=== PATIENT | female | born 1990 | race Caucasian/White ===

== ENCOUNTER 2025-02-28 11:41 | Outpatient (AMB) | payer MEDICAID, SELFPAY ==
[2025-02-28 11:59] VITALS: BP 117/71; PULSE 69; RESP 14; TEMP 36.6; O2SAT 99; BMI 24.7
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
== END 2025-02-28 12:22 | disposition home or self-care (01) ==
LOC: HODSOBC 11:41
PROVIDERS: Supervising Provider Obstetrics & Gynecology; Visit Provider Advanced Practice Midwife
DX: Z34.81 Encounter for supervision of other normal pregnancy, first trimester (principal); Z3A.09 9 weeks gestation of pregnancy
CPT/HCPCS: 99204; G0463

== ENCOUNTER 2025-03-21 09:07 | Outpatient (AMB) | payer MEDICAID, SELFPAY ==
[2025-03-21 09:36] VITALS: BP 108/69; PULSE 63; RESP 18; TEMP 36.2; O2SAT 98; BMI 24.7
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
== END 2025-03-21 09:55 | disposition home or self-care (01) ==
LOC: HODSOBC 09:07
PROVIDERS: Supervising Provider Obstetrics & Gynecology; Visit Provider Advanced Practice Midwife
DX: O09.291 Supervision of pregnancy with other poor reproductive or obstetric history, first trimester (principal); Z3A.12 12 weeks gestation of pregnancy; Z87.59 Personal history of other complications of pregnancy, childbirth and the puerperium
CPT/HCPCS: 99213; G0463

== ENCOUNTER 2025-04-30 11:05 | Outpatient (AMB) | payer MEDICAID, SELFPAY ==
[2025-04-30 11:20] VITALS: BP 96/62; PULSE 90; RESP 17; TEMP 36.9; O2SAT 98; BMI 25.2
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
== END 2025-04-30 11:43 | disposition home or self-care (01) ==
LOC: HODSOBC 11:05
PROVIDERS: Supervising Provider Advanced Practice Midwife; Visit Provider Advanced Practice Midwife
DX: O09.892 Supervision of other high risk pregnancies, second trimester (principal); O21.9 Vomiting of pregnancy, unspecified; Z3A.18 18 weeks gestation of pregnancy
CPT/HCPCS: 99214; G0463

== ENCOUNTER 2025-05-28 13:39 | Outpatient (AMB) | payer MEDICAID, SELFPAY ==
[2025-05-28 13:45] VITALS: BP 106/64; PULSE 92; RESP 17; TEMP 36.7; O2SAT 90; BMI 25.8
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
== END 2025-05-28 14:20 | disposition home or self-care (01) ==
LOC: HODSOBC 13:39
PROVIDERS: Supervising Provider Advanced Practice Midwife; Visit Provider Advanced Practice Midwife
DX: Z34.82 Encounter for supervision of other normal pregnancy, second trimester (principal); Z3A.21 21 weeks gestation of pregnancy
CPT/HCPCS: 99213; G0463

== ENCOUNTER 2025-08-03 14:55 | Outpatient (AMB) | payer MEDICAID, SELFPAY ==
[2025-08-03 14:59] VITALS: BP 107/71; PULSE 90; RESP 18; TEMP 36.8; O2SAT 98; BMI 27.3
--- NOTE | 2025-08-03 14:59 | AMB.OBVISIT ---
Vital Signs 08/03/25 14:59 Height 1.57 m Height Method Stated Weight 67.245 kg Weight Measurement Method Standing Scale BMI 27.3 BP 107/71 Blood Pressure Source Automatic Cuff Blood Pressure Location Left Upper Arm Position Sitting Respiration 18 Pulse 90 Pulse Source Monitor Temp 98.2 F Temp Source Oral Pulse Oximetry (%) 98 Oxygen Delivery Method Room Air Allergies/Home Meds Allergies & Medications Allergies No Known Allergies Allergy (Verified 08/03/25 15:01) Medication Reconciliation ondansetron 4 mg disintegrating tablet 4 mg PO Q6H PRN nausea and vomiting #30 tabs 04/30/25 [Rx Confirmed 08/03/25] vitamin-ferrous fumarate 28 mg iron-folic acid 800 mcg tablet ( Vitamins with Minerals) 1 tab PO QDAY #60 tabs 04/30/25 [Rx Confirmed 08/03/25] Intake Visit Data Collection New Patient or Established: Established Patient (seen at [facility] within 3 years) Reason for Visit:: CARE Seen by Clinical Staff ONLY (RN/MA): No 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 Do You Feel Safe at Home: Yes Authorities Contacted: N/A PCP or OBGYN visit in last 3 months: Yes Hx Now: Yes Are you currently on any form of Control: No Pain Present Currently: No Pain Scale Used: Hawk-Jernigan/Numerical Pain scale:: 0 Smoking Status Smoking Status: Never smoker Immunizations Flu Vaccine in the Last 12 Months: No Flu Vaccine Exclusion Criteria: Refused by Patient Questionnaires Covid-19 Vaccine Questionnaire Has patient been vacinated for Covid-19 Have you been vacinated for Covid-19: No PHQ-9 PHQ-2 Over the last 2 weeks, how often have you been bothered by any of the following problems? 1. Little interest or pleasure in doing things: several days 2. Feeling down, depressed, or hopeless: nearly every day Total score: 4 PHQ-9 3. Trouble falling or staying asleep, or sleeping too much: Several days 4. Feeling tired or having little energy: Nearly every day 5. Poor appetite or overeating: Not at all 6. Feeling bad about yourself - or that you are a failure or have let yourself or your family down: Not at all 7. Trouble concentrating on things, such as reading the newspaper or watching television: Not at all 8. Moving or speaking so slowly that other people could have noticed? - Or the opposite - being so fidgety or restless that you have been moving around a lot more than usual: several days 9. Thoughts that you would be better off or of hurting yourself in some way: Not at all Total score: 9.0 If you checked off any problems, how difficult have these problems made it for you to do your work, take care of things at home, or get along with other people?: somewhat difficult Source: Developed by Drs. Jt Ward, Darlene Brower, Kareem Robles and colleagues, with an educational ruddy from [employer]. Depression screen completed yes Social History Living Situation History Lives With: Family Housing: House Tobacco History Smoking Status: Never smoker Second Hand Smoke Exposure: No Alcohol History Alcohol Intake: Current Domestic Abuse History Do You Feel Safe at Home: Yes Care OB Visit Log OB Flowsheet Initial Weight: Not Recorded Date <del>?</del> EGA Weight BP Alb Glu CTX Pres Fundal ht FHR Mov Dilation Station Effacement Hx Notes Visit Note 02/28/25 <del>?</del> 8w 2d 61.348 kg 117/71 8 absent 34 yo , SAB x 1 prior to 10 week. unsure date. lmp 12/24/24. q month. not using contraception. Denies SAB complaints. Tired. here with partner, both are happy sono for viability. ob panel and HCG. comfort measure for preg discomfort. continue PNV. NIPT nv, rtc 3 week 03/21/25 <del>?</del> 11w 2d 60.895 kg 108/69 absent unknown 12 160 absent Compliant with vitamins. Denies any complaints of bleeding leaking or cramping. Slight nausea. Schedule NIPT and carrier screen today. Schedule anatomy scan with maternal- medicine at 20 weeks. Continue vitamins. Discussed comfort measures for nausea and vomiting. Discussed SAB precautions. Return in 4 weeks OB check 04/30/25 <del>?</del> 17w 0d 62.142 kg 96/62 absent unknown 18 156 active Complains of increased nausea and vomiting. Denies vaginal leaking. Denies bleeding. Denies contractions. Maternal- medicine appointment is scheduled for May 28. Patient was given a lab slip to do OB panel, NIPT, AFP and carrier screens. Complains of increased nausea and vomiting. Reports slight movement. Denies leaking bleeding or cramps. No maternal- medicine scheduled for May. Patient was given a lab slip to do OB panel, AFP, NIPT and carrier screen. Encouraged to keep appointment for her anatomy scan. Comfort measures for nausea and vomiting. And I gave her prescription for Zofran 3 times daily. Return in 4 weeks OB check 05/28/25 <del>?</del> 21w 0d 63.673 kg 106/64 absent unknown 20 145 active Nausea and vomiting improved. Reports movement. Denies leaking, bleeding, contractions. Patient states that maternal- medicine (8 changed to EDC to October 08, 2025. And Discussed labs. Discussed dates. Discussed labor precautions. Increase fluids. Return in 4 weeks OB 08/03/25 <del>?</del> 30w 4d 67.245 kg 107/71 absent unknown 30 145 active No complaints of nausea and vomiting. Declined Tdap for today. Discussed labor precautions. We ordered third trimester labs. Growth sono next visit. Discussed labor precautions. Increase fluids return in 2 weeks to SHELLEY Calculator Estimated Delivery Date Method Current WG Current Estimate 10/08/25 Ultrasound #1 30w 4d Other Estimates 09/30/25 LMP (Uncertain) 31w 5d 10/08/25 Ultrasound #2 30w 4d 10/08/25 Manual 30w 4d final shelley: 10/08/25 Notes Visit Date: 05/28/25 Last Updated by: Aicha Tenorio CNM per [facility] sono 05/18/25 iUP 19w4. . change EDC to 10/08/25 OB panel O+,abs-, rpr;;nr, rub imm, HBSAG-, HIV-, GC/CT-, , NIPT-/girl, CF/SMA- Visit Date: 02/28/25 Last Updated by: Aicha Tenorio CNM 34 yo . lmp 12/24/24. EDC 10/03/25 Office Procedures OBC Clinic LOC & Office Proc's Nursing/Assessment Patient Status: Established Patient OB Clinic Nursing Assessment: Medication Reconciliation, Update PMH in EMR and Vital Signs OB Clinic Coordination of Care: Complex Care and Chronic Disease 1-5, Education Complex Pt/Fam, Consent,records obtained, informed consent, Education Simp Pt/Fam, 1 Ins Authorization, Lab and Imaging orders, Results/Orders obtained and Staff clarify orders Special Needs: Heart tones Established Patient Charge Established Patient Point Assignment: 170 Established Patient Point Charge: EP Level 5 (160-above) Assessment & Plan Diagnosis / Problem List (1) Encounter for supervision of high risk in third trimester, antepartum: Status: Acute Plan Review ultrasound. Third trimester labs ordered. Will do a growth scan next visit. Discussed labor precautions. Increase fluids. Continue prenatals. Return in 3 weeks OB check Additional Plan Follow Up: 3 Weeks (obc)
== END 2025-08-03 15:31 | disposition home or self-care (01) ==
LOC: HODSOBC 14:55
PROVIDERS: Supervising Provider Advanced Practice Midwife; Visit Provider Advanced Practice Midwife
DX: O09.93 Supervision of high risk pregnancy, unspecified, third trimester (principal); Z3A.30 30 weeks gestation of pregnancy; Z28.21 Immunization not carried out because of patient refusal
CPT/HCPCS: 99215; G0463

== ENCOUNTER 2025-08-21 13:00 | Outpatient (AMB) | payer MEDICAID, SELFPAY ==
[2025-08-21 13:10] VITALS: BP 110/69; PULSE 94; RESP 18; TEMP 36.2; O2SAT 98; BMI 27.2
--- NOTE | 2025-08-21 13:10 | AMB.OBPNC ---
Vital Signs 08/21/25 13:10 Height 1.57 m Height Method Stated Weight 67.132 kg Weight Measurement Method Standing Scale BMI 27.2 BP 110/69 Blood Pressure Source Automatic Cuff Blood Pressure Location Left Upper Arm Position Sitting Respiration 18 Pulse 94 Pulse Source Monitor Temp 97.2 F Temp Source Oral Pulse Oximetry (%) 98 Oxygen Delivery Method Room Air Allergies/Home Meds Allergies & Medications Allergies No Known Allergies Allergy (Verified 08/21/25 13:11) Medication Reconciliation ondansetron 4 mg disintegrating tablet 4 mg PO Q6H PRN nausea and vomiting #30 tabs 04/30/25 [Rx Confirmed 08/21/25] vitamin-ferrous fumarate 28 mg iron-folic acid 800 mcg tablet ( Vitamins with Minerals) 1 tab PO QDAY #60 tabs 04/30/25 [Rx Confirmed 08/21/25] Immunizations Immunizations Flu Vaccine in the Last 12 Months: No Flu Vaccine Exclusion Criteria: No Exclusion Criteria Care OB Visit Log OB Flowsheet Initial Weight: Not Recorded Date <del>?</del> EGA Weight BP Alb Glu CTX Pres Fundal ht FHR Mov Dilation Station Effacement Hx Notes Visit Note 02/28/25 <del>?</del> 8w 2d 61.348 kg 117/71 8 absent 34 yo , SAB x 1 prior to 10 week. unsure date. lmp 12/24/24. q month. not using contraception. Denies SAB complaints. Tired. here with partner, both are happy sono for viability. ob panel and HCG. comfort measure for preg discomfort. continue PNV. NIPT nv, rtc 3 week 03/21/25 <del>?</del> 11w 2d 60.895 kg 108/69 absent unknown 12 160 absent Compliant with vitamins. Denies any complaints of bleeding leaking or cramping. Slight nausea. Schedule NIPT and carrier screen today. Schedule anatomy scan with maternal- medicine at 20 weeks. Continue vitamins. Discussed comfort measures for nausea and vomiting. Discussed SAB precautions. Return in 4 weeks OB check 04/30/25 <del>?</del> 17w 0d 62.142 kg 96/62 absent unknown 18 156 active Complains of increased nausea and vomiting. Denies vaginal leaking. Denies bleeding. Denies contractions. Maternal- medicine appointment is scheduled for May 28. Patient was given a lab slip to do OB panel, NIPT, AFP and carrier screens. Complains of increased nausea and vomiting. Reports slight movement. Denies leaking bleeding or cramps. No maternal- medicine scheduled for May. Patient was given a lab slip to do OB panel, AFP, NIPT and carrier screen. Encouraged to keep appointment for her anatomy scan. Comfort measures for nausea and vomiting. And I gave her prescription for Zofran 3 times daily. Return in 4 weeks OB check 05/28/25 <del>?</del> 21w 0d 63.673 kg 106/64 absent unknown 20 145 active Nausea and vomiting improved. Reports movement. Denies leaking, bleeding, contractions. Patient states that maternal- medicine (8 changed to EDC to October 08, 2025. And Discussed labs. Discussed dates. Discussed labor precautions. Increase fluids. Return in 4 weeks OB 08/03/25 <del>?</del> 30w 4d 67.245 kg 107/71 absent unknown 30 145 active No complaints of nausea and vomiting. Declined Tdap for today. Discussed labor precautions. We ordered third trimester labs. Growth sono next visit. Discussed labor precautions. Increase fluids return in 2 weeks to 08/21/25 <del>?</del> 33w 1d 67.132 kg 110/69 absent cephalic 33 145 active Fetus is active. Denies leaking or bleeding. Increased backache and pressure. Patient stands for 9 hours a day at work. Complains of some sciatic pain. off work starting 08/25. last day to work 08/24/25. Discussed labor precautions. Discussed disability. Kick count twice a day. We discussed Tdap. Patient will make a decision next visit. And patient declined the flu vaccine. SHELLEY Calculator Estimated Delivery Date Method Current WG Current Estimate 10/08/25 Ultrasound #1 33w 1d Other Estimates 09/30/25 LMP (Uncertain) 34w 2d 10/08/25 Ultrasound #2 33w 1d 10/08/25 Manual 33w 1d final shelley: 10/08/25 Notes Visit Date: 08/21/25 Last Updated by: Aicha Tenorio CNM 3rd tri lab wnl Visit Date: 05/28/25 Last Updated by: Aicha Tenorio CNM per [facility] sono 05/18/25 iUP 19w4. . change EDC to 10/08/25 OB panel O+,abs-, rpr;;nr, rub imm, HBSAG-, HIV-, GC/CT-, , NIPT-/girl, CF/SMA- Visit Date: 02/28/25 Last Updated by: Aicha Tenorio CNM 34 yo . lmp 12/24/24. EDC 10/03/25 Office Procedures OBC Clinic LOC & Office Proc's Nursing/Assessment Patient Status: Established Patient OB Clinic Nursing Assessment: Medication Reconciliation, Update PMH in EMR and Vital Signs OB Clinic Coordination of Care: Consent,records obtained, informed consent, Education Simp Pt/Fam, Lab and Imaging orders, Results/Orders obtained and Staff clarify orders Special Needs: Heart tones Established Patient Charge Established Patient Point Assignment: 110 Established Patient Point Charge: EP Level 3 (80-115) Assessment & Plan Diagnosis / Problem List (1) Encounter for supervision of high risk in third trimester, antepartum: Status: Acute Plan Discussed labor precaution. Kick count twice a day. Patient's last date of work will be August 24, 2025. Disability will start August 28. Continue prenatals. Little bit increase fluids. Return in 2 weeks OB check. Patient declined Tdap for today. And she declined flu vaccine Additional Plan Follow Up: 2 Weeks (obc)
== END 2025-08-21 13:45 | disposition home or self-care (01) ==
PROVIDERS: Supervising Provider Advanced Practice Midwife; Visit Provider Advanced Practice Midwife
DX: O09.893 Supervision of other high risk pregnancies, third trimester (principal); O99.891 Other specified diseases and conditions complicating pregnancy; M54.30 Sciatica, unspecified side; Z3A.33 33 weeks gestation of pregnancy; Z28.21 Immunization not carried out because of patient refusal
CPT/HCPCS: 99213; G0463

== ENCOUNTER 2025-09-04 13:33 | Outpatient (AMB) | payer MEDICAID, SELFPAY ==
[2025-09-04 14:03] VITALS: BP 112/72; PULSE 91; RESP 18; TEMP 36.6; O2SAT 98; BMI 27.3
--- NOTE | 2025-09-04 14:03 | OBCLNT_ITS ---
Vital Signs 09/04/25 14:03 Height 1.57 m Height Method Stated Weight 67.302 kg Weight Measurement Method Standing Scale BMI 27.3 BP 112/72 Blood Pressure Source Automatic Cuff Blood Pressure Location Left Upper Arm Position Sitting Respiration 18 Pulse 91 Pulse Source Monitor Temp 98 F Temp Source Oral Pulse Oximetry (%) 98 Oxygen Delivery Method Room Air Allergies/Home Meds Allergies & Medications Allergies No Known Allergies Allergy (Verified 09/04/25 14:04) Medication Reconciliation ondansetron 4 mg disintegrating tablet 4 mg PO Q6H PRN nausea and vomiting #30 tabs 04/30/25 [Rx Confirmed 09/04/25] vitamin-ferrous fumarate 28 mg iron-folic acid 800 mcg tablet ( Vitamins with Minerals) 1 tab PO QDAY #60 tabs 04/30/25 [Rx Confirmed 09/04/25] Immunizations Immunizations Flu Vaccine in the Last 12 Months: No Flu Vaccine Exclusion Criteria: Refused by Patient Care OB Visit Log OB Flowsheet Initial Weight: Not Recorded Date -?-?-?-?-?-?-?-?-?-?-?-?- EGA Weight BP Alb Glu CTX Pres Fundal ht FHR Mov Dilation Station Effacement Hx Notes Visit Note 02/28/25 -?-?-?-?-?-?-?-?-?-?-?-?- 8w 2d 61.348 kg 117/71 8 absent 34 yo , SAB x 1 prior to 10 week. unsure date. lmp 12/24/24. q month. not using contraception. Denies SAB complaints. Tired. here with partner, both are happy sono for viability. ob panel and HCG. comfort measure for preg discomfort. continue PNV. NIPT nv, rtc 3 week 03/21/25 -?-?-?-?-?-?-?-?-?-?-?-?- 11w 2d 60.895 kg 108/69 absent unknown 12 160 absent Compliant with vitamins. Denies any complaints of bleeding leaking or cramping. Slight nausea. Schedule NIPT an d carrier screen today. Schedule anatomy scan with maternal- medicine at 20 weeks. Continue vitamins. Discussed comfort measures for nausea and vomiting. Discussed SAB precautions. Return in 4 weeks OB check 04/30/25 -?-?-?-?-?-?-?-?-?-?-?-?- 17w 0d 62.142 kg 96/62 absent unknown 18 156 active Complains of increased nausea and vomiting. Denies vaginal leaking. Denies bleeding. Denies contractions. Maternal- medicine appointment is scheduled for May 28. Patient was given a lab slip to do OB panel, NIPT, AFP and carrier screens. Complains of increased nausea and vomiti ng. Reports slight movement. Denies leaking bleeding or cramps. No maternal- medicine scheduled for May. Patient was giv en a lab slip to do OB panel, AFP, NIPT and carrier screen. Encouraged to keep appointment for her anatomy scan. Comfort measures for nausea and vomiting. And I gave her prescription for Zofran 3 times daily. Return in 4 weeks OB check 05/28/25 -?-?-?-?-?-?-?-?-?-?-?-?- 21w 0d 63.673 kg 106/64 absent unknown 20 145 active Nausea and vomiting improved. Reports movement. Denies leaking, bleeding, contractions. Patient states that maternal- medicine (8 changed to EDC to October 08, 2025. And Discussed labs. Discussed dates. Discussed labor precautions. Increase fluids. Return in 4 weeks OB 08/03/25 -?-?-?-?-?-?-?-?-?-?-?-?- 30w 4d 67.245 kg 107/71 absent unknown 30 145 active No complaints of nausea and vomiting. Declined Tdap for today. Discussed labor precautions. We ordered third trimester labs. Growth sono next visit. Discussed labor precautions. Increase fluids return in 2 weeks to 08/21/25 -?-?-?-?-?-?-?-?-?-?-?-?- 33w 1d 67.132 kg 110/69 absent cephalic 33 145 active Fetus is active. Denies leaking or bleeding. Increased backache and pressure. Patient stands for 9 hours a day at work. Complains of some sciatic pain. off work starting 08/25. last day to work 08/24/25. Discussed labor precautions. Discussed disability. Kick count twice a day. We discussed Tdap. Patient will make a decision next visit. And patient declined the flu vaccine. 09/04/25 -?-?-?-?-?-?-?-?-?-?-?-?- 35w 1d 67.302 kg 112/72 absent cephalic 33 145 active Patient reports good movement. Denies leaking, bleeding, contractions. Patient had a 3D ultrasound 2 weeks ago. Sono for growth. Discussed labor precautions. Kick count twice a day. GBS today return in 2 weeks OB check SHELLEY Calculator Estimated Delivery Date Method Current WG Current Estimate 10/08/25 Ultrasound #1 35w 1d Other Estimates 09/30/25 LMP (Uncertain) 36w 2d 10/08/25 Ultrasound #2 35w 1d 10/08/25 Manual 35w 1d final shelley: Notes Visit Date: 08/21/25 Last Updated by: Aicha Tenorio CNM 3rd tri lab wnl Visit Date: 05/28/25 Last Updated by: Aicha Tenorio CNM per [facility] sono 05/18/25 iUP 19w4. . change EDC to 10/08/25 OB panel O+,abs-, rpr;;nr, rub imm, HBSAG-, HIV-, GC/CT-, , NIPT- /girl, CF/SMA- Visit Date: 02/28/25 Last Updated by: Aicha Tenorio CNM 34 yo . lmp 12/24/24. EDC 10/03/25 Office Procedures OBC Clinic LOC & Office Proc's Nursing/Assessment Patient Status: Established Patient OB Clinic Nursing Assessment: Medication Reconciliation, Update PMH in EMR and Vital Signs OB Clinic Coordination of Care: Complex Care and Chronic Disease 1-5, Consent,records obtained, informed consent, Education Simp Pt/Fam, 1 Ins Authorization, Lab and Imaging orders, Results/Orders obtained and Staff clarify orders Special Needs: Heart tones Established Patient Charge Established Patient Point Assignment: 150 Established Patient Point Charge: EP Level 4 (120-155) Assessment & Plan Diagnosis / Problem List (1) Encounter for supervision of high risk in third trimester, antepartum: Status: Acute Plan Sono for growth. Discussed labor precautions. Kick count twice a day. GBS today. Increase fluids. Return in 2 weeks OB check Additional Plan Follow Up: 2 Weeks (obc)
== END 2025-09-04 14:39 | disposition home or self-care (01) ==
LOC: HODSOBC 13:33
PROVIDERS: Supervising Provider Advanced Practice Midwife; Visit Provider Advanced Practice Midwife
DX: O09.93 Supervision of high risk pregnancy, unspecified, third trimester (principal); Z3A.35 35 weeks gestation of pregnancy; Z36.85 Encounter for antenatal screening for Streptococcus B; Z28.21 Immunization not carried out because of patient refusal
CPT/HCPCS: 99214; G0463

== ENCOUNTER 2025-09-14 14:32 | Outpatient (AMB) | payer MEDICAID, SELFPAY ==
[2025-09-14 14:40] VITALS: BP 107/70; PULSE 79; RESP 18; TEMP 36.7; O2SAT 99; BMI 27.3
--- NOTE | 2025-09-14 14:40 | OBCLNT_ITS ---
Vital Signs 09/14/25 14:40 Height 1.57 m Height Method Stated Weight 67.358 kg Weight Measurement Method Standing Scale BMI 27.3 BP 107/70 Blood Pressure Source Automatic Cuff Blood Pressure Location Right Upper Arm Position Sitting Respiration 18 Pulse 79 Pulse Source Monitor Temp 98.1 F Temp Source Temporal Artery Scan Pulse Oximetry (%) 99 Oxygen Delivery Method Room Air Allergies/Home Meds Allergies & Medications Allergies No Known Allergies Allergy (Verified 09/14/25 14:41) Medication Reconciliation ondansetron 4 mg disintegrating tablet 4 mg PO Q6H PRN nausea and vomiting #30 tabs 04/30/25 [Rx Confirmed 09/14/25] vitamin-ferrous fumarate 28 mg iron-folic acid 800 mcg tablet ( Vitamins with Minerals) 1 tab PO QDAY #60 tabs 04/30/25 [Rx Confirmed 09/14/25] Immunizations Immunizations Flu Vaccine in the Last 12 Months: No Flu Vaccine Exclusion Criteria: Refused by Patient Care OB Visit Log OB Flowsheet Initial Weight: Not Recorded Date -?-?-?-?-?-?-?-?-?-?-?-?- EGA Weight BP Alb Glu CTX Pres Fundal ht FHR Mov Dilation Station Effacement Hx Notes Visit Note 02/28/25 -?-?-?-?-?-?-?-?-?-?-?--?- 8w 2d 61.348 kg 117/71 8 absent 34 yo , SAB x 1 prior to 10 week. unsure date. lmp 12/24/24. q month. not using contraception. Denies SAB co mplaints. Tired. here with partner, both are happy sono for viability. ob panel and HCG. comfort measure for preg discomfort. continue PNV. NIPT nv, rtc 3 week 03/21/25 -?-?-?-?-?-?-?-?-?--?-?-?- 11w 2d 60.895 kg 108/69 absent unknown 12 160 absent Compliant with vitamins. Denies any complaints of bleeding leaking or cramping. Slight nausea. Schedule NIPT an d carrier screen today. Schedule anatomy scan with maternal- medicine at 20 weeks. Continue vitamins. Discussed comfort measures for nausea and vomiting. Discussed SAB precautions. Return in 4 weeks OB check 04/30/25 -?-?-?-?-?-?-?-?-?-?-?-?- 17w 0d 62.142 kg 96/62 absent unknown 18 156 active Complains of increased nausea and vomiting. Denies vaginal leaking. Denies bleeding. Denies contractions. Maternal- medicine appointment is scheduled for May 28. Patient was given a lab slip to do OB panel, NIPT, AFP and carrier screens. Complains of increased nausea and vomiti ng. Reports slight movement. Denies leaking bleeding or cramps. No maternal- medicine scheduled for May. Patient was giv en a lab slip to do OB panel, AFP, NIPT and carrier screen. Encouraged to keep appointment for her anatomy scan. Comfort measures for nausea and vomiting. And I gave her prescription for Zofran 3 times daily. Return in 4 weeks OB check 05/28/25 -?-?-?-?-?-?-?-?-?-?-?-?- 21w 0d 63.673 kg 106/64 absent unknown 20 145 active Nausea and vomiting improved. Reports movement. Denies leaking, bleeding, contractions. Patient states that maternal- medicine (8 changed to EDC to October 08, 2025. And Discussed labs. Discussed dates. Discussed labor precautions. Increase fluids. Return in 4 weeks OB 08/03/25 -?-?-?-?-?-?-?-?-?-?-?-?- 30w 4d 67.245 kg 107/71 absent unknown 30 145 active No complaints of nausea and vomiting. Declined Tdap for today. Discussed labor precautions. We ordered third trimester labs. Growth sono next visit. Discussed labor precautions. Increase fluids return in 2 weeks to 08/21/25 -?-?-?-?-?-?-?-?-?-?-?-?- 33w 1d 67.132 kg 110/69 absent cephalic 33 145 active Fetus is active. Denies leaking or bleeding. Increased backache and pressure. Patient stands for 9 hours a day at work. Complains of some sciatic pain. off work starting 08/25. last day to work 08/24/25. Discussed labor precautions. Discussed disability. Kick count twice a day. We discussed Tdap. Patient will make a decision next visit. And patient declined the flu vaccine. 09/04/25 -?-?-?-?-?-?-?-?-?-?-?-?- 35w 1d 67.302 kg 112/72 absent cephalic 33 145 active Patient reports good movement. Denies leaking, bleeding, contractions. Patient had a 3D ultrasound 2 weeks ago. Sono for growth. Discussed labor precautions. Kick count twice a day. GBS today return in 2 weeks OB check 09/14/25 -?-?-?-?-?-?-?-?-?-?-?-?- 36w 4d 67.358 kg 107/70 absent cephalic 35 145 active Reports good movement. Denies leaking or bleeding. Occasional contraction and pressure. Call [facility] for [facility]. Discussed labor precautions. Kick count twice a day. Increase fluids. Return in a week OB check [facility]LLEY Calculator Estimated Delivery Date Method Current WG Current Estimate 10/08/25 Ultrasound #1 36w 4d Other Estimates 09/30/25 LMP (Uncertain) 37w 5d 10/08/25 Ultrasound #2 36w 4d 10/08/25 Manual 36w 4d final shelley: Notes Visit Date: 09/14/25 Last Updated by: Aicha Tenorio CNM 09/05/25: GBS- Visit Date: 08/21/25 Last Updated by: Aicha Tenorio CNM 3rd tri lab wnl Visit Date: 05/28/25 Last Updated by: Aicha Tenorio CNM per [facility] sono 05/18/25 iUP 19w4. . change EDC to 10/08/25 OB panel O+,abs-, rpr;;nr, rub imm, HBSAG-, HIV-, GC/CT-, , NIPT- /girl, CF/SMA- Visit Date: 02/28/25 Last Updated by: Aicha Tenorio CNM 34 yo . lmp 12/24/24. EDC 10/03/25 Office Procedures OBC Clinic LOC & Office Proc's Nursing/Assessment Patient Status: Established Patient OB Clinic Nursing Assessment: Medication Reconciliation, Update PMH in EMR and Vital Signs OB Clinic Coordination of Care: Complex Care and Chronic Disease 1-5, Education Complex Pt/Fam, Consent,records obtained, informed consent, Education Simp Pt/Fam, Lab and Imaging orders, Results/Orders obtained and Staff clarify orders Special Needs: Heart tones Established Patient Charge Established Patient Point Assignment: 155 Established Patient Point Charge: EP Level 4 (120-155) Assessment & Plan Diagnosis / Problem List (1) Encounter for supervision of high risk in third trimester, antepartum: Status: Acute Plan Call for ultrasound results from [facility]. Increase fluids. Reviewed kick count labor precautions. Patient instructed to do kick count twice a day. Discussed danger signs symptoms return week OB check Additional Plan Follow Up: 1 Week (obc)
== END 2025-09-14 15:04 | disposition home or self-care (01) ==
LOC: HODSOBC 14:32
PROVIDERS: Supervising Provider Advanced Practice Midwife; Visit Provider Advanced Practice Midwife
DX: O09.93 Supervision of high risk pregnancy, unspecified, third trimester (principal); Z3A.36 36 weeks gestation of pregnancy
CPT/HCPCS: 99214; G0463

== ENCOUNTER 2025-09-28 14:31 | Outpatient (AMB) | payer MEDICAID, SELFPAY ==
[2025-09-28 14:45] VITALS: BP 114/73; PULSE 78; RESP 16; TEMP 36.7; O2SAT 98; BMI 27.4
--- NOTE | 2025-09-28 14:45 | AMB.OBPNC ---
Vital Signs 09/28/25 14:45 Height 1.57 m Height Method Stated Weight 67.699 kg Weight Measurement Method Standing Scale BMI 27.4 BP 114/73 Blood Pressure Source Automatic Cuff Blood Pressure Location Left Upper Arm Position Sitting Respiration 16 Pulse 78 Pulse Source Monitor Temp 98.1 F Temp Source Oral Pulse Oximetry (%) 98 Oxygen Delivery Method Room Air Allergies/Home Meds Allergies & Medications Allergies No Known Allergies Allergy (Verified 09/28/25 14:46) Medication Reconciliation ondansetron 4 mg disintegrating tablet 4 mg PO Q6H PRN nausea and vomiting #30 tabs 04/30/25 [Rx Confirmed 09/28/25] vitamin-ferrous fumarate 28 mg iron-folic acid 800 mcg tablet ( Vitamins with Minerals) 1 tab PO QDAY #60 tabs 04/30/25 [Rx Confirmed 09/28/25] Immunizations Immunizations Flu Vaccine in the Last 12 Months: No Flu Vaccine Exclusion Criteria: Already Received Care OB Visit Log OB Flowsheet Initial Weight: Not Recorded Date <del>?</del> EGA Weight BP Alb Glu CTX Pres Fundal ht FHR Mov Dilation Station Effacement Hx Notes Visit Note 02/28/25 <del>?</del> 8w 2d 61.348 kg 117/71 8 absent 34 yo , SAB x 1 prior to 10 week. unsure date. lmp 12/24/24. q month. not using contraception. Denies SAB complaints. Tired. here with partner, both are happy sono for viability. ob panel and HCG. comfort measure for preg discomfort. continue PNV. NIPT nv, rtc 3 week 03/21/25 <del>?</del> 11w 2d 60.895 kg 108/69 absent unknown 12 160 absent Compliant with vitamins. Denies any complaints of bleeding leaking or cramping. Slight nausea. Schedule NIPT and carrier screen today. Schedule anatomy scan with maternal- medicine at 20 weeks. Continue vitamins. Discussed comfort measures for nausea and vomiting. Discussed SAB precautions. Return in 4 weeks OB check 04/30/25 <del>?</del> 17w 0d 62.142 kg 96/62 absent unknown 18 156 active Complains of increased nausea and vomiting. Denies vaginal leaking. Denies bleeding. Denies contractions. Maternal- medicine appointment is scheduled for May 28. Patient was given a lab slip to do OB panel, NIPT, AFP and carrier screens. Complains of increased nausea and vomiting. Reports slight movement. Denies leaking bleeding or cramps. No maternal- medicine scheduled for May. Patient was given a lab slip to do OB panel, AFP, NIPT and carrier screen. Encouraged to keep appointment for her anatomy scan. Comfort measures for nausea and vomiting. And I gave her prescription for Zofran 3 times daily. Return in 4 weeks OB check 05/28/25 <del>?</del> 21w 0d 63.673 kg 106/64 absent unknown 20 145 active Nausea and vomiting improved. Reports movement. Denies leaking, bleeding, contractions. Patient states that maternal- medicine (8 changed to EDC to October 08, 2025. And Discussed labs. Discussed dates. Discussed labor precautions. Increase fluids. Return in 4 weeks OB 08/03/25 <del>?</del> 30w 4d 67.245 kg 107/71 absent unknown 30 145 active No complaints of nausea and vomiting. Declined Tdap for today. Discussed labor precautions. We ordered third trimester labs. Growth sono next visit. Discussed labor precautions. Increase fluids return in 2 weeks to 08/21/25 <del>?</del> 33w 1d 67.132 kg 110/69 absent cephalic 33 145 active Fetus is active. Denies leaking or bleeding. Increased backache and pressure. Patient stands for 9 hours a day at work. Complains of some sciatic pain. off work starting 08/25. last day to work 08/24/25. Discussed labor precautions. Discussed disability. Kick count twice a day. We discussed Tdap. Patient will make a decision next visit. And patient declined the flu vaccine. 09/04/25 <del>?</del> 35w 1d 67.302 kg 112/72 absent cephalic 33 145 active Patient reports good movement. Denies leaking, bleeding, contractions. Patient had a 3D ultrasound 2 weeks ago. Sono for growth. Discussed labor precautions. Kick count twice a day. GBS today return in 2 weeks OB check 09/14/25 <del>?</del> 36w 4d 67.358 kg 107/70 absent cephalic 35 145 active Reports good movement. Denies leaking or bleeding. Occasional contraction and pressure. Call [facility] for ultrasound. Discussed labor precautions. Kick count twice a day. Increase fluids. Return in a week OB check 09/28/25 <del>?</del> 38w 4d 67.699 kg 114/73 absent cephalic 37 145 active Reports good movement. Denies leaking, bleeding, contractions. Patient is tearful today as she is having some issues with the father the baby. He is saying that the baby is not he is not wanting paternity testing and does not want to be there to support her during labor Discussed labor precautions. Kick count twice a day. Discussed danger signs symptoms return week OB check SHELLEY Calculator Estimated Delivery Date Method Current WG Current Estimate 10/08/25 Ultrasound #1 38w 4d Other Estimates 09/30/25 LMP (Uncertain) 39w 5d 10/08/25 Ultrasound #2 38w 4d 10/08/25 Manual 38w 4d final shelley: 10/08/25 Notes Visit Date: 09/28/25 Last Updated by: Aicha Tenorio CNM 09/06: EFW: 41%,vtx, normal UTE,no previa Visit Date: 09/14/25 Last Updated by: Aicha Tenorio CNM 09/05/25: GBS- Visit Date: 08/21/25 Last Updated by: Aicha Tenorio CNM 3rd tri lab wnl Visit Date: 05/28/25 Last Updated by: Aicha Tenorio CNM per [facility] sono 05/18/25 iUP 19w4. . change EDC to 10/08/25 OB panel O+,abs-, rpr;;nr, rub imm, HBSAG-, HIV-, GC/CT-, , NIPT-/girl, CF/SMA- Visit Date: 02/28/25 Last Updated by: Aicha Tenorio, PK 34 yo . lmp 12/24/24. EDC 10/03/25 Office Procedures [facility] Clinic LOC & Office Proc's Nursing/Assessment Patient Status: Established Patient OB Clinic Nursing Assessment: Medication Reconciliation, Update PMH in EMR and Vital Signs OB Clinic Coordination of Care: Complex Care and Chronic Disease 1-5, Consent,records obtained, informed consent, Education Simp Pt/Fam, 1 Ins Authorization, Lab and Imaging orders, Results/Orders obtained and Staff clarify orders Special Needs: Heart tones Established Patient Charge Established Patient Point Assignment: 150 Established Patient Point Charge: EP Level 4 (120-155) Assessment & Plan Diagnosis / Problem List (1) Encounter for supervision of high risk in third trimester, antepartum: Status: Acute Plan Discussed labor precautions. Kick count twice a day. Discussed comfort measures during labor and pain med options. Reviewed danger signs symptoms and ER precautions return week Additional Plan Follow Up: 1 Week (obc)
== END 2025-09-28 15:46 | disposition home or self-care (01) ==
LOC: HODSOBC 14:31
PROVIDERS: Supervising Provider Advanced Practice Midwife; Visit Provider Advanced Practice Midwife
DX: O09.93 Supervision of high risk pregnancy, unspecified, third trimester (principal); Z3A.38 38 weeks gestation of pregnancy
CPT/HCPCS: 99214; G0463

== ENCOUNTER 2025-10-03 15:04 | Outpatient (AMB) | payer MEDICAID, SELFPAY ==
[2025-10-03 15:10] VITALS: BP 130/78; PULSE 87; RESP 18; TEMP 36.8; O2SAT 98; BMI 27.4
--- NOTE | 2025-10-03 15:10 | OBCLNT_ITS ---
Vital Signs 10/03/25 15:10 Height 1.57 m Height Method Stated Weight 67.699 kg Weight Measurement Method Standing Scale BMI 27.4 BP 130/78 Blood Pressure Source Automatic Cuff Blood Pressure Location Left Upper Arm Position Sitting Respiration 18 Pulse 87 Pulse Source Monitor Temp 98.2 F Temp Source Oral Pulse Oximetry (%) 98 Oxygen Delivery Method Room Air Allergies/Home Meds Allergies & Medications Allergies No Known Allergies Allergy (Verified 10/03/25 15:11) Medication Reconciliation ondansetron 4 mg disintegrating tablet 4 mg PO Q6H PRN nausea and vomiting #30 tabs 04/30/25 [Rx Confirmed 10/03/25] vitamin-ferrous fumarate 28 mg iron-folic acid 800 mcg tablet ( Vitamins with Minerals) 1 tab PO QDAY #60 tabs 04/30/25 [Rx Confirmed 10/03/25] Immunizations Immunizations Flu Vaccine in the Last 12 Months: No Flu Vaccine Exclusion Criteria: Refused by Patient Care OB Visit Log OB Flowsheet Initial Weight: Not Recorded Date -?-?-?-?-?-?-?-?-?-?-?-?- EGA Weight BP Alb Glu CTX Pres Fundal ht FHR Mov Dilation Station Effacement Hx Notes Visit Note 02/28/25 -?-?-?-?-?-?-?-?-?-?-?-?- 8w 2d 61.348 kg 117/71 8 absent 34 yo , SAB x 1 prior to 10 week. unsure date. lmp 12/24/24. q month. not using contraception. Denies SAB complaints. Tired. here with partner, both are happy sono for viability. ob panel and HCG. comfort measure for preg discomfort. continue PNV. NIPT nv, rtc 3 week 03/21/25 -?-?-?-?-?-?-?-?-?-?-?-?- 11w 2d 60.895 kg 108/69 absent unknown 12 160 absent Compliant with vitamins. Denies any complaints of bleeding leaking or cramping. Slight nausea. Schedule NIPT an d carrier screen today. Schedule anatomy scan with maternal- medicine at 20 weeks. Continue vitamins. Discussed comfort measures for nausea and vomiting. Discussed SAB precautions. Return in 4 weeks OB check 04/30/25 -?-?-?-?-?-?-?-?-?-?-?-?- 17w 0d 62.142 kg 96/62 absent unknown 18 156 active Complains of increased nausea and vomiting. Denies vaginal leaking. Denies bleeding. Denies contractions. Maternal- medicine appointment is scheduled for May 28. Patient was given a lab slip to do OB panel, NIPT, AFP and carrier screens. Complains of increased nausea and vomiti ng. Reports slight movement. Denies leaking bleeding or cramps. No maternal- medicine scheduled for Darlene jason. Patient was giv en a lab slip to do OB panel, AFP, NIPT and carrier screen. Encouraged to keep appointment for her anatomy scan. Comfort measures for nausea and vomiting. And I gave her prescription for Zofran 3 times daily. Return in 4 weeks OB check 05/28/25 -?-?-?-?-?-?-?-?-?-?-?-?- 21w 0d 63.673 kg 106/64 absent unknown 20 145 active Nausea and vomiting improved. Reports movement. Denies leaking, bleeding, contractions. Patient states that maternal- medicine (8 changed to EDC to October 08, 2025. And Discussed labs. Discussed dates. Discussed labor precautions. Increase fluids. Return in 4 weeks OB 08/03/25 -?-?-?-?-?-?-?-?-?-?-?-?- 30w 4d 67.245 kg 107/71 absent unknown 30 145 active No complaints of nausea and vomiting. Declined Tdap for today. Discussed labor precautions. We ordered third trimester labs. Growth sono next visit. Discussed labor precautions. Increase fluids return in 2 weeks to 08/21/25 -?-?-?-?-?-?-?-?-?-?-?-?- 33w 1d 67.132 kg 110/69 absent cephalic 33 145 active Fetus is active. Denies leaking or bleeding. Increased backache and pressure. Patient stands for 9 hours a day at work. Complains of some sciatic pain. off work starting 08/25. last day to work 08/24/25. Discussed labor precautions. Discussed disability. Kick count twice a day. We discussed Tdap. Patient will make a decision next visit. And patient declined the flu vaccine. 09/04/25 -?-?-?-?-?-?-?-?-?-?-?-?- 35w 1d 67.302 kg 112/72 absent cephalic 33 145 active Patient reports good movement. Denies leaking, bleeding, contractions. Patient had a 3D ultrasound 2 weeks ago. Sono for growth. Discussed labor precautions. Kick count twice a day. GBS today return in 2 weeks OB check 09/14/25 -?-?-?-?-?-?-?-?-?-?-?-?- 36w 4d 67.358 kg 107/70 absent cephalic 35 145 active Reports good movement. Denies leaking or bleeding. Occasional contraction and pressure. Call [facility] for ultrasound. Discussed labor precautions. Kick count twice a day. Increase fluids. Return in a week OB check 09/28/25 -?-?-?-?-?-?-?-?-?-?-?-?- 38w 4d 67.699 kg 114/73 absent cephalic 37 145 active Reports good movement. Denies leaking, bleeding, contractions. Patient is tearful today as she is having some issues with the father the baby. He is saying that the baby is not he is not wanting paternity testing and does not want to be there to support her during labor Discuss ed labor precautions. Kick count twice a day. Discussed danger signs symptoms return week OB check 10/03/25 -?-?-?-?-?-?-?-?-?-?-?-?- 39w 2d 67.699 kg 130/78 frequent cephalic 38 1 45 active Reports good movement. Denies leaking, bleeding increased contractions and pressure . Discussed comfort measures early labor. Return in a week OB check SHELLEY Calculator Estimated Delivery Date Method Current WG Current Estimate 10/08/25 Ultrasound #1 39w 2d Other Estimates 09/30/25 LMP (Uncertain) 40w 3d 10/08/25 Ultrasound #2 39w 2d 10/08/25 Manual 39w 2d final shelley: Notes Visit Date: 09/28/25 Last Updated by: Aicha Tenorio CNM 09/06: EFW: 41%,vtx, normal UTE,no previa Visit Date: 09/14/25 Last Updated by: Aicha Tenorio CNM 09/05/25: GBS- Visit Date: 08/21/25 Last Updated by: Aicha Tenorio CNM 3rd tri lab wnl Visit Date: 05/28/25 Last Updated by: Aicha Tenorio CNM per [facility] sono 05/18/25 iUP 19w4. . change EDC to 10/08/25 OB panel O+,abs-, rpr;;nr, rub imm, HBSAG-, HIV-, GC/CT-, , NIPT- /girl, CF/SMA- Visit Date: 02/28/25 Last Updated by: Aicha Tenorio CNM 34 yo . lmp 12/24/24. EDC 10/03/25 Office Procedures OBC Clinic LOC & Office Proc's Nursing/Assessment Patient Status: Established Patient OB Clinic Nursing Assessment: Medication Reconciliation, Update PMH in EMR and Vital Signs OB Clinic Coordination of Care: Complex Care and Chronic Disease 1-5, Consent,records obtained, informed consent, Education Simp Pt/Fam, Lab and Imaging orders, Results/Orders obtained and Staff clarify orders Special Needs: Heart tones Established Patient Charge Established Patient Point Assignment: 135 Established Patient Point Charge: EP Level 4 (120-155) Assessment & Plan Diagnosis / Problem List (1) Encounter for supervision of high risk in third trimester, antepartum: Status: Acute Plan Discussed labor precautions. Kick count twice a day. Discussed danger signs symptoms and ER precautions. Comfort measures for early labor return week OB check Additional Plan Follow Up: 1 Week (obc)
== END 2025-10-03 15:18 | disposition home or self-care (01) ==
LOC: HODSOBC 15:04
PROVIDERS: Supervising Provider Advanced Practice Midwife; Visit Provider Advanced Practice Midwife
DX: O09.93 Supervision of high risk pregnancy, unspecified, third trimester (principal); Z3A.39 39 weeks gestation of pregnancy; Z28.21 Immunization not carried out because of patient refusal
CPT/HCPCS: 99214; G0463